=== PATIENT | male | born 1990 | race Caucasian/White ===

== ENCOUNTER 2019-07-18 04:11 | Emergency (ER) | payer OTHER ==
[~2019-07-18] VITALS: Ht 172.7 cm; Wt 97.5 kg
[2019-07-18] MEDS ORDERED: TORADOL 10 MG T10 MG PO (04:55)
[2019-07-18] MEDS ORDERED: NORFLEX100 MG PO (04:55)
[2019-07-18] MEDS ORDERED: MEDROLDOSEPACK PO (04:55)
[2019-07-18 05:00] VITALS: BP 126/82
== END 2019-07-18 05:00 | disposition home or self-care (01) ==
LOC: M.ERS 04:11
DX: M43.6 Torticollis (principal)